=== PATIENT | male | born 1970 | race Caucasian/White ===

== ENCOUNTER 2016-08-05 16:22 | Emergency (ER) | payer MEDICARE, MEDICAID ==
[2016-08-05 16:43] VITALS: TEMP 98.3; BMI 28.8
[2016-08-05 17:02] LABS: AUTOMATED BASOPHIL 0.7 % (0-2); AUTOMATED EOSINOPHIL 0.3 % (0-5); AUTOMATED LYMPH 15.4 % (17-44); AUTOMATED NEUTROPHIL 76.6 % (45-76); MPV 7.1 fL (7.4-10.4)
[2016-08-05 17:11] LABS: BLOOD UREA NITROGEN 8 MG/DL (9-20); CALCIUM 8.9 MG/DL (8.4-10.2); CALCULATED OSMOLALITY 266 MOs/Kg (270-290); CHLORIDE 99 mEq/L (98-107); GLUCOSE 107 MG/DL (70-99); SODIUM LEVEL 139 mEq/L (137-146); TOTAL PROTEIN 7.9 G/DL (6.3-8.2)
[2016-08-05 17:13] LABS: LEUKOCYTES/URINE TRACE (NEGATIVE); NITRITE/URINE NEG (NEGATIVE); RBC/URINE 0-2 (0-2); URINE OCCULT BLOOD NEG (NEG/TRACE); WBC/URINE 0-2 (0-2)
[2016-08-05] MEDS ORDERED: ONDANSETRON HCL 4 MG/2 ML VIAL IV ONE (20:04)
[2016-08-05] MEDS ORDERED: NS 1,000 ML IV ONE (20:04)
[2016-08-05] MEDS ORDERED: HYDROmorphone 1 MG INJECTION IV ONE (20:04)
[2016-08-05] MEDS ORDERED: Pharmacy Review for Metformin - IV Contrast Given SCH (21:00)
--- NOTE | 2016-08-05 21:46 | DIRPT ---
CLINICAL DATA: Acute onset of bilateral flank pain and lower abdominal pain. Nausea and decreased appetite. Abdominal bloating and difficulty voiding. Initial encounter. EXAM: CT ABDOMEN AND PELVIS WITH CONTRAST TECHNIQUE: Multidetector CT imaging of the abdomen and pelvis was performed using the standard protocol following bolus administration of intravenous contrast. CONTRAST: 100 mL of Isovue 370 IV contrast COMPARISON: CT abdomen and pelvis from 01/27/2016 FINDINGS: The visualized lung bases are clear. The liver and spleen are unremarkable in appearance. The known hepatic lesion is not well characterized due to the phase of contrast enhancement. The gallbladder is within normal limits. The pancreas and adrenal glands are unremarkable. Mild nonspecific perinephric stranding is noted bilaterally. The kidneys are otherwise grossly unremarkable. There is no evidence of hydronephrosis. No renal or ureteral stones are seen. No free fluid is identified. The small bowel is unremarkable in appearance. The stomach is within normal limits. No acute vascular abnormalities are seen. Mild scattered calcification is noted along the abdominal aorta and branches. The appendix is normal in caliber, without evidence of appendicitis. The colon is unremarkable in appearance. The bladder is moderately distended and grossly remarkable. The prostate remains normal in size, with minimal calcification. No inguinal lymphadenopathy is seen. No acute osseous abnormalities are identified. IMPRESSION: 1. No acute abnormality seen within the abdomen or pelvis. 2. Mild scattered calcification along the abdominal aorta and its branches. Electronically Signed By: Alexei Enriquez M.D. On: 08/05/2016 21:41
--- NOTE | 2016-08-05 21:58 | EDPRACDOC ---
- General Information Chief Complaint: Back Pain Stated Complaint: abd and back pain Time Seen by Provider: 08/05/16 20:02 Information Source: Patient Mode Of Arrival: Car Home Medications: Home Medications Simvastatin [Zocor] 20 mg PO HS 05/07/14 [id number] Ethyl Esters [Lovaza ([place]-3 Acid Ethyl Esters)] 1,000 mg PO BID 09/12/14 Fluoxetine HCl [Prozac] 40 mg PO QAM 11/14/14 Tamsulosin HCl [Flomax] 0.4 mg PO QAM 11/20/14 Alprazolam [Xanax] 1 mg PO QID 01/27/16 Lurasidone HCl [Latuda] 80 mg PO QHS 01/27/16 Niacin [Niacin ER] 1,000 mg PO DAILY 01/27/16 Omeprazole 40 mg PO BID 01/27/16 Quetiapine Fumarate [Seroquel] 600 mg PO QHS 01/27/16 Ropinirole HCl 1 mg PO QHS 01/27/16 Zolpidem Tartrate [Ambien] 10 mg PO QHS PRN 01/27/16 Lisinopril 10 mg PO DAILY 03/16/16 Albuterol Sulfate [Ventolin Hfa] 2 puff INH DAILY 03/25/16 Aspirin [Chewable Aspirin] 81 mg PO DAILY 03/25/16 Promethazine [Phenergan] 25 mg PO Q6H PRN 03/25/16 Tiotropium [place] [Spiriva Respimat] 4 gm INH BID 03/25/16 Aspirin/Dipyridamole [Aggrenox Capsule (25mg/200mg)] 1 cap PO BID 04/01/16 Budesonide/Formoterol Fumarate [Symbicort 160-4.5 Mcg Inhaler] 2 puff INH BID Levetiracetam [Keppra] 500 mg PO BID 04/01/16 Albuterol/Ipratropium Neb [Duoneb] 3 ml NEB BID 08/05/16 Allergies/Adverse Reactions: Allergies Allergy/AdvReac Type Severity Reaction Status Date / Time No Known Allergies Allergy Verified 04/02/16 09:00 - History of Present Illness Onset: 1 WEEK Pain Location: Reports: Periumbilical Pain Context: Reports: Spontaneous Pain Severity: Mild Pain Quality: Reports: Aching Pain Radiation: Reports: No Radiation Modifying Factors: improves with: Nothing Associated Signs & Symptoms: Reports: Nausea Oral Intake: Normal Urinary Output: Normal ED Past Medical History - History Reviewed Yes Nurses notes reviewed and agree except as marked - Patient Medical History Neurological History: Reports: Cerebrovascular Accident (HEAD MRI 03/22/2016 OLD LEFT FRONTAL CORTICAL INFARCTION), Seizures (2015 RELATED TO ALCOHOL WITHDRAW) Cardiac History: Reports: Coronary Artery Disease, Hypertension, Hypercholesterolemia. Denies: Atrial Fibrillation Respiratory History: Reports: Asthma (DIAGNOSED BY PFT'S 12/15/2014), COPD GI/ History: Reports: Gastroesophageal Reflux, Pancreatitis Psychological History: Reports: Depression, Anxiety, Bipolar Disorder, Substance Use Disorder (Prior history of poly substance abuse. ) Systemic History: Reports: Anemia. Denies: Cancer - Family Medical History Reports: Hypertension (Mother and father.), Cancer (Father and uncle had throat CA.). Denies: Diabetes, Stroke, Cardiac Disorders - Social Medical History Smoking Status: Heavy tobacco smoker (5 or more cigarettes/day or daily pipe/ cigar) Social History: Reports: Substance Use Disorder (Prior history of poly substance abuse. ) EDM Review of Systems - Review of Systems ROS Negative Except as Marked: Yes All systems reviewed and were negative except as marked - Physical Exam Constitutional: Alert (Awake), No apparent distress Oriented to: Time, Person, Place Last recorded Vital Signs: Last Vital Signs Temp 98.3 F 08/05/16 16:38 Pulse 103 08/05/16 21:06 Resp 18 08/05/16 21:06 BP 133/84 08/05/16 21:06 Pulse Ox 95 08/05/16 21:06 Oxygen Pulse Oxygen Saturation 95 O2 Device Room Air Oxygen Flow Rate Fraction of Inspired Oxygen ( FIO2) - HEENT Head: Normal ( normocephalic) Eye Exam: Normal (PERRL, EOMI, Sclera white) Oropharynx: Normal (Pharynx:Moist without exudate,Gums-no swelling) Tympanic Membrane: Normal ENT EAC: Normal TMJ: Normal Nose: No Symptoms Reported (septum midline) Neck: Normal (FROM, trachea at midline) - Respiratory/Cardiovascular Respiratory: Normal - CTA (BBS clear to auscultation without adventitious sounds ) Cardiovascular: Normal (RRR without murmur, gallop or rub) - GI Auscultation: Normal (NABS) Palpation: Normal (Soft,No rebound or guarding, non distended) Tenderness: Non tender Rey's Sign: Negative - Musculoskeletal Back: Normal (Non-Tender) Extremities: Normal (Normal tone, Pulses 2+ No cyanosis or edema, FROM) - Integumentary Skin: Normal, Warm, Dry Lymphatics: Normal (no adenopathy) - Neurologic Memory Impaired: Normal Motor Function: Normal (Normal tone, Pulses 2+ No cyanosis or edema, FROM) Cranial Nerve: Normal (CN II-X11 intact sensation, strength 5/5) Cerebellar: Normal Mood Description: Normal Perception: Normal - Results 08/05/16 16:49 08/05/16 16:49 WBC 16.2 xk/uL (3.8-10.8) H 08/05/16 16:49 RBC 4.43 xM/uL (4.70-6.10) L 08/05/16 16:49 Hgb 13.7 g/dL (14.0-18.0) L 08/05/16 16:49 Hct 40.5 % (42-52) L 08/05/16 16:49 MCV 91 fL (80-94) 08/05/16 16:49 MCH 30.9 pg (27-32) 08/05/16 16:49 MCHC 33.8 g/dl (33-36) 08/05/16 16:49 RDW 18.3 % (11.5-14.5) H 08/05/16 16:49 Plt Count 302 xk/uL (130-400) 08/05/16 16:49 MPV 7.1 fL (7.4-10.4) L 08/05/16 16:49 Neut % (Auto) 76.6 % (45-76) H 08/05/16 16:49 Lymph % (Auto) 15.4 % (17-44) L 08/05/16 16:49 [place] % (Auto) 7.0 % (3-10) 08/05/16 16:49 Eos % (Auto) 0.3 % (0-5) 08/05/16 16:49 Baso % (Auto) 0.7 % (0-2) 08/05/16 16:49 Absolute Neuts (auto) 12.31 xk/uL (1.7-8.2) H 08/05/16 16:49 Absolute Lymphs (auto) 2.43 xk/uL (0.65-4.75) 08/05/16 16:49 Sodium 139 mEq/L (137-146) 08/05/16 16:49 Potassium 3.6 mEq/L (3.5-5.1) 08/05/16 16:49 Chloride 99 mEq/L (98-107) 08/05/16 16:49 Carbon Dioxide 25 mMOL/L (22-33) 08/05/16 16:49 Anion Gap 19 mEq/L (8-16) H 08/05/16 16:49 BUN 8 MG/DL (9-20) L 08/05/16 16:49 Creatinine 0.70 MG/DL (0.66-1.25) 08/05/16 16:49 Estimated GFR (MDRD) > 60 mL/min (>=60) 08/05/16 16:49 Glucose 107 MG/DL (70-99) H 08/05/16 16:49 Calculated Osmolality 266 MOs/Kg (270-290) L 08/05/16 16:49 Calcium 8.9 MG/DL (8.4-10.2) 08/05/16 16:49 Total Bilirubin 0.4 MG/DL (0.2-1.3) 08/05/16 16:49 AST 61 IU/L (17-59) H 08/05/16 16:49 ALT 46 IU/L (21-72) 08/05/16 16:49 Alkaline Phosphatase 182 IU/L (38-126) H 08/05/16 16:49 Ammonia < 9.0 umol/L (9.0-30.0) L 08/05/16 16:49 Total Protein 7.9 G/DL (6.3-8.2) 08/05/16 16:49 Albumin 4.2 G/DL (3.5-5.0) 08/05/16 16:49 Lipase 94 U/L (23-300) 08/05/16 16:49 Urine Color Yellow 08/05/16 16:52 Urine Clarity Clear 08/05/16 16:52 Urine pH 6.0 (5.0-8.0) 08/05/16 16:52 Ur Specific [place] 1.005 (1.003-1.035) 08/05/16 16:52 Urine Protein Neg (NEG/TRACE) 08/05/16 16:52 Urine Glucose (UA) Neg (NEGATIVE) 08/05/16 16:52 Urine Ketones Neg (NEGATIVE) 08/05/16 16:52 Urine Occult Blood Neg (NEG/TRACE) 08/05/16 16:52 Urine Nitrite Neg (NEGATIVE) 08/05/16 16:52 Urine Bilirubin Neg (NEGATIVE) 08/05/16 16:52 Urine Urobilinogen <2.0 MG/DL (0-1) 08/05/16 16:52 Ur Leukocyte Esterase Trace (NEGATIVE) H 08/05/16 16:52 Urine RBC 0-2 (0-2) 08/05/16 16:52 Urine WBC 0-2 (0-2) 08/05/16 16:52 Lab Results 08/05/16 08/05/16 08/05/16 16:52 16:49 16:49 WBC 16.2 H RBC 4.43 L Hgb 13.7 L Hct 40.5 L MCV 91 MCH 30.9 MCHC 33.8 RDW 18.3 H Plt Count 302 MPV 7.1 L Neut % (Auto) 76.6 H Lymph % (Auto) 15.4 L [place] % (Auto) 7.0 Eos % (Auto) 0.3 Baso % (Auto) 0.7 Absolute Neuts (auto) 12.31 H Absolute Lymphs (auto) 2.43 Sodium Potassium Chloride Carbon Dioxide Anion Gap BUN Creatinine Estimated GFR (MDRD) Glucose Calculated Osmolality Calcium Total Bilirubin AST ALT Alkaline Phosphatase Ammonia < 9.0 L Total Protein Albumin Lipase Urine Color Yellow Urine Clarity Clear Urine pH 6.0 Ur Specific [place] 1.005 Urine Protein Neg Urine Glucose (UA) Neg Urine Ketones Neg Urine Occult Blood Neg Urine Nitrite Neg Urine Bilirubin Neg Urine Urobilinogen <2.0 Ur Leukocyte Esterase Trace H Urine RBC 0-2 Urine WBC 0-2 08/05/16 16:49 WBC RBC Hgb Hct MCV MCH MCHC RDW Plt Count MPV Neut % (Auto) Lymph % (Auto) [place] % (Auto) Eos % (Auto) Baso % (Auto) Absolute Neuts (auto) Absolute Lymphs (auto) Sodium 139 Potassium 3.6 Chloride 99 Carbon Dioxide 25 Anion Gap 19 H BUN 8 L Creatinine 0.70 Estimated GFR (MDRD) > 60 Glucose 107 H Calculated Osmolality 266 L Calcium 8.9 Total Bilirubin 0.4 AST 61 H ALT 46 Alkaline Phosphatase 182 H Ammonia Total Protein 7.9 Albumin 4.2 Lipase 94 Urine Color Urine Clarity Urine pH Ur Specific [place] Urine Protein Urine Glucose (UA) Urine Ketones Urine Occult Blood Urine Nitrite Urine Bilirubin Urine Urobilinogen Ur Leukocyte Esterase Urine RBC Urine WBC Decision Time to Discharge: 21:57 - Departure Yes I personally saw and evaluated the patient. Disposition: Home Condition: Good Final Diagnosis: Abdominal pain Instructions: Acute Abdominal Pain (ED) Education/Counseling Given To: Patient, Family Member Education/Counseling Given Regarding: Diagnosis, Treatment, Prognosis
[2016-08-05 22:36] VITALS: BP 133/81; PULSE 91
== END 2016-08-05 22:35 | disposition home or self-care (01) ==
LOC: ED 16:22
DX: R10.9 Unspecified abdominal pain (principal)
CPT/HCPCS: 36415; 74177; 80053; 81001; 82140; 83690; 85025; 96361; 96374; 96375; 99284; A9698; J1170; J2405